=== PATIENT | female | born 1970 | race Caucasian/White ===

== ENCOUNTER 2021-07-07 10:39 | Emergency (ER) | payer OTHER ==
--- OUTSIDE RECORDS SUMMARY | 2021-07-07 10:42 | XMS REPORT | Continuity of Care Document ---
:1970 Author Organization [facility] t Address [facility] Daw[address] Nagy [address] [place] [address] Care Team Providers Name Role Phone ANNI CUMMINGSURSTON Primary Care Physician Unavailable Willie HIGGINS Attending Clinician WILLIE Attending Clinician Unavailable Doctor Unassigned, Name Attending Clinician Unavailable Osiris Ojeda Attending Clinician Osiris SHEPPARD Attending Clinician Unavailable Kathryn Bond Attending Clinician KATHRYN CLANCY Attending Clinician Unavailable KATHRYN CLANCY Admitting Clinician Unavailable Payers Payer Name Policy Type Policy Number Effective Date Expiration Date S ource Problems Condition Condition Condition Status Onset Resolution Last Treating Co mments Source Name Details Category Date Date Treatment Clinician Date Lichen Lichen Disease Active Univers sclerosus sclerosus 4- ity of 00:00: [address] Morbid Morbid Disease Active Univers obesity obesity 05-18 ity of 00:00: [address] Encounter Encounter Disease Active Overview: Univers for for 05-18 ICD10 ity of routine routine 00:00: Diagnosis [place] gynecologi gynecologi 00 Term Me dical reddy 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 Utility n n H/O: H/O: Disease Active Univers hysterecto hysterecto 05-18 it y of my my 00:00: Medical [place] Depression Depression Disease Active U nivers 05-18 ity of 00:00: [address] [place] [address] Generalize Generalize Disease Active U nivers d anxiety d anxiety 3-31 ity of disorder disorder 00:00: [place] [address] Medical Branch Essential Essential Disease Active Overview: [facility] hypertensi hypertensi 3-31 ICD10 it y of on on 00:00: Diagnosis [place] [address] Term 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 Branch Exposure to Yes [facility] SARS-CoV-2 (event) Medica l [place] Alcohol intake 2019-08-17 2019-08-17 [facility] 00:00:00 00:00:[address] [facility] Smoking Status Start Date Stop Date Source Never smoker [facility] Medications Ordered Filled Start Stop Current Ordering Indication Dosage Frequency Signature Comments Components Source Medication Medication Date Date Medication? Clinician (SIG) Name Name acetaminoph 2020- No 1000mg 1,000 mg, Univers en 08-20 Oral, ity of (TYLENOL) 00:28: 00:36 [place]CE, [place] tablet 00 :00 dose, [facility] Medical 1,000 mg 08/20/19 at Branch 1929, MAURICIO ketorolac 2019- No 15mg 15 mg, Unive rs (TORADOL) 08-20 Slow IV ity of injection 00:28: 00:36 Push, [place] 15 mg 00 :00 ONCE, 1 Medical dose, [facility] 08/20/19 at 0, MAURICIO
Fa culty member approving Restricted medication : [place] TAPIA codeine-gua 2020- No 10mL 10 mL, Uni vers ifenesin 08-19 Oral, ity of (ROBITUSSIN 23:15: 22:31 ONCE, 1 [place] AC[place] 00 :00 dose, [facility] Medi reddy mg/5 mL 08/20/19 at [place] solution 10 1815, MAURICIO mL methylpredn 2020- No 125mg 125 mg, IV Univers isolone sod 08-19 Piggyback, i ty of succ 22:02: 22:26 ONCE, 1 [place] (SOLU-MEDRO 00 :00 dose, [facility] Med ical L) 08/20/19 at Branch injection 1715, STAT 125 mg albuterol 2020- No 2{puff} 2 Puff, U nivers (VENTOLIN) 08-1902 Inhalation it y of inhaler 2 22:02: 22:58 , [place]CE, 1 [place] Puff 00 :00 dose, [facility] 08/20/19 at Branch 1715, MAURICIO
Is this order for a patient with suspected or confirmed COVID-19 infection? Yes ondansetron 2019-0 2020- No 4mg 4 mg, Slow Univers (ZOFRAN 08-19 IV Push, ity of (PF)) 22:01: 22:26 ONCE, 1 [place] injection 4 00 :00 dose, [facility] Med ical mg 08/20/19 at Branch 1715, MAURICIO NaCl 0.9% 0 2020- No 1000mL at 999 Uni vers (NS) IV 08-19 mL/hr, ity of infusion 22:01: 23:00 Intravenou [place] 1,000 mL 00 :00 s, ONCE, 1 Medic al dose, [facility] 08/20/19 at 1715, MAURICIO albuterol 2019-0 Yes [id number] 2{puff} Inhale 2 Univers 90 -02 Puffs ity of mcg/actuati 00:00: every 6 [place] as on inhaler 00 (six) Medical hours as Branch needed for Wheezing or Shortness of Breath. ondansetron 2019-0 Yes [id number] 4mg Take 1 Univers (ZOFRAN 08-19 tablet by ity of ODT) 4 mg 00:00: mouth [place] disintegrat 00 every 8 Medic al ing tablet (eight) Branch hours as needed for Nausea and Vomiting (N/V). codeine-gua 2020-0 Yes [id number] 10mL Take 10 mL Univers ifenesin 702 by mouth ity of 10-100 mg/5 00:00: every 6 [place] as mL solution 00 (six) Medical hours as Branch needed for Cough. cefTRIAXone 2019-0 2020- No 1000mg 1,000 mg, Univers (ROCEPHIN) 6-30 06-30 IV ity of 1,000 mg in 02:45: 02:22 Piggyback, [place] NaCl 0.9% 00 :00 ONCE, 1 Medical (NS) 50 mL dose, [facility] Bran ch MINI-BAG 08/17/19 at 2145, 50 mL
Reas on for Anti-Infec tive: Documented Infection< br>Documen barbie Infection Site: Urine
D uration of Therapy: 7 days ketorolac 2019- No 15mg 15 mg, Unive rs (TORADOL) 08-17 0630 Slow IV ity of injection 01:45: 01:11 Push, [place] 15 mg 00 :00 ONCE, 1 Medical dose, Mon Branch 08/17/19 at 2045, Routine
research assistant member approving Restricted medication : TOSIN SHEPPARDYony Newell NaCl 0.9% 2019- No 1000mL at 999 Uni vers (NS) bolus 08-17 06-30 mL/hr, ity of infusion 00:45: 02:31 1,000 mL, [place] as 1,000 mL 00 :00 IV Medical Infusion, Branch ONCE, 1 dose, [facility] 08/17/19 at 1945, MAURICIO cefpodoxime 2019-0 2020- No [id number] 100mg Take 1 Univers 100 mg 6-15 09-07 tablet by ity of tablet 00:00: 04:59 mouth 2 [place] 00 :00 (two) Medical times Branch daily for 7 days. cefpodoxime 2020-0 2020- No [id number] 100mg Take 1 Univers 100 mg 6- 07-07 tablet by ity of tablet 00:00: 04:59 mouth 2 [place] 00 :00 (two) Medical times Branch daily for 7 days. cefpodoxime 2020-0 2020- No [id number] 100mg Take 1 Univers 100 mg 6- 07-07 tablet by ity of tablet 00:00: 04:59 mouth 2 [place] 00 :00 (two) Medical times Branch daily for 7 days. valsartan-h 2019-0 Yes 1{tbl} Take 1 Un [place] ydrochlorot 2-08 tablet by ity of hiazide 02:06: mouth [place] 160-25 mg 29 daily. Medical per tablet Branch gabapentin 2019-0 Yes 300mg Take 300 [place] 300 mg 2-08 mg by ity of capsule 02:06: mouth 3 [place] 29 (three) Medical times Branch daily. traMADol 50 2020-0 Yes 50mg Take 50 mg Univers mg tablet 2-08 by mouth ity of 02:06: every 6 [place] 29 (six) Medical hours as Branch needed. valsartan-h 2020-0 Yes 1{tbl} Take 1 Un [place] ydrochlorot 2-08 tablet by ity of hiazide 02:06: mouth [place] 160-25 mg 29 daily. Medical per tablet Branch gabapentin 2020-0 Yes 300mg Take 300 Un [place] 300 mg 2-08 mg by ity of capsule 02:06: mouth 3 [place] 29 (three) Medical times Branch daily. traMADol 50 2020-0 Yes 50mg Take 50 mg Univers mg tablet 2-08 by mouth ity of 02:06: every 6 [place] 29 (six) Medical hours as Branch needed. valsartan-h 2020-0 Yes 1{tbl} Take 1 Un [place] ydrochlorot 2-08 tablet by ity of hiazide 02:06: mouth [place] 160-25 mg 29 daily. Medical per tablet Branch gabapentin 2020-0 Yes 300mg Take 300 Un [place] 300 mg 2-08 mg by ity of capsule 02:06: mouth 3 [place] 29 (three) Medical times Branch daily. traMADol 50 2020-0 Yes 50mg Take 50 mg Univers mg tablet 2-08 by mouth ity of 02:06: every 6 [place] 29 (six) Medical hours as Branch needed. valsartan-h 2020-0 Yes 1{tbl} Take 1 Un [place] ydrochlorot 2-08 tablet by ity of hiazide 02:06: mouth [place] 160-25 mg 29 daily. Medical per tablet Branch gabapentin 2020-0 Yes 300mg Take 300 Un [place] 300 mg 2-08 mg by ity of capsule 02:06: mouth 3 [place] 29 (three) Medical times Branch daily. traMADol 50 2020-0 Yes 50mg Take 50 mg Univers mg tablet 2-08 by mouth ity of 02:06: every 6 [place] 29 (six) Medical hours as Branch needed. valsartan-h 2020-0 Yes 1{tbl} Take 1 Un [place] ydrochlorot 2-08 tablet by ity of hiazide 02:06: mouth [place] 160-25 mg 29 daily. Medical per tablet Branch gabapentin 2020-0 Yes 300mg Take 300 Un [place] 300 mg 2-08 mg by ity of capsule 02:06: mouth 3 [place] 29 (three) Medical times Branch daily. traMADol 50 2019-0 Yes 50mg Take 50 mg Univers mg tablet 2-08 by mouth ity of 02:06: every 6 [place] 29 (six) Medical hours as Branch needed. diazePAM 2019- No 5mg 5 mg, Univers (VALIUM) 03-28-08 Oral, ity of tablet 5 mg 01:30: 00:44 ONCE, 1 [place] 00 :[place] dose, Fri Medical 03/27/19 at Branch 1930, MAURICIO ketorolac 2019- No 30mg 30 mg, Unive rs (TORADOL) 03-2808 Intramuscu ity of injection 01:30: 00:44 lar, ONCE, [place] 30 mg 00 :00 1 dose, Medical 03/27/19 Branch at 1930, MAURICIO
Fa culty member approving Restricted medication : TRACY MARTIN cyclobenzap 2020- No [id number] 5mg Take 1 Univers rine 5 mg 03-2715 tablet by ity of tablet 00:00: 05:59 mouth 3 [place] 00 :00 (three) Medical times [place] daily for 7 days. clobetasol 2013- Yes [id number] Apply to Univers (TEMOVATE) 4-24 area(s) 2 ity of 0.05 % 00:00: (two) [place] cream 00 times Medical daily. Branch clobetasol Yes [id number] Apply to Univers (TEMOVATE) 4-24 area(s) 2 ity of 0.05 % 00:00: (two) [place] cream 00 times Medical daily. Branch clobetasol Yes [id number] Apply to Univers (TEMOVATE) 4-24 area(s) 2 ity of 0.05 % 00:00: (two) [place] cream 00 times Medical daily. Branch clobetasol Yes [id number] Apply to Univers (TEMOVATE) 4-24 area(s) 2 ity of 0.05 % 00:00: (two) [place] cream 00 times Medical daily. Branch clobetasol 2013-0 Yes [id number] Apply to Univers (TEMOVATE) 4-24 area(s) 2 ity of 0.05 % 00:00: (two) [place] cream 00 times Medical daily. Branch enalapril 0 Yes Take by [place] [facility] ers (VASOTEC) 3-31 mouth ity of 10 mg 21:02: daily. [place] tablet [address] [place] [address] Branch SERTraline 0 Yes 50mg Take 50 mg U nivers (ZOLOFT) 50 3-31 by mouth ity of mg tablet 21:02: daily. [address] Branch naproxen 0 Yes 500mg Take 500 Univ ers (NAPROSYN) 3-31 mg by ity of 500 mg 21:02: mouth 2 [place] tablet 55 (two) Medical times Branch daily with meals. tiZANidine 2013-0 Yes 4mg Take 4 mg Un [place] (ZANAFLEX) 3-31 by mouth ity o f 4 mg tablet 21:02: every 6 [place] as 55 (six) Medical hours as Branch needed. enalapril 0 Yes Take by [place] [facility] ers (VASOTEC) 3-31 mouth ity of 10 mg 21:02: daily. [address] Branch SERTraline 0 Yes 50mg Take 50 mg U nivers (ZOLOFT) 50 3-31 by mouth ity of mg tablet 21:02: daily. [address] Branch naproxen 0 Yes 500mg Take 500 Univ ers (NAPROSYN) 3-31 mg by ity of 500 mg 21:02: mouth 2 [place] tablet 55 (two) Medical times Branch daily with meals. tiZANidine 0 Yes 4mg Take 4 mg Un [place] (ZANAFLEX) 3-31 by mouth ity o f 4 mg tablet 21:02: every 6 [place] 55 (six) Medical hours as Branch needed. enalapril 0 Yes Take by Univ ers (VASOTEC) 3-31 mouth ity of 10 mg 21:02: daily. [place] [address] Medical Branch SERTraline 0 Yes 50mg Take 50 mg U nivers (ZOLOFT) 50 3-31 by mouth ity of mg tablet 21:02: daily. [address] Branch naproxen 2013-0 Yes 500mg Take 500 Univ ers (NAPROSYN) 3-31 mg by ity of 500 mg 21:02: mouth 2 [place] tablet 55 (two) Medical times Branch daily with meals. tiZANidine 2013-0 Yes 4mg Take 4 mg Un [place] (ZANAFLEX) 3-31 by mouth ity o f 4 mg tablet 21:02: every 6 [place] 55 (six) Medical hours as Branch needed. enalapril 2013-0 Yes Take by Univ ers (VASOTEC) 3-31 mouth ity of 10 mg 21:02: daily. [place] tablet Medical Branch SERTraline 2013-0 Yes 50mg Take 50 mg U nivers (ZOLOFT) 50 3-31 by mouth ity of mg tablet 21:02: daily. [place] [address] Medical Branch naproxen 2013-0 Yes 500mg Take 500 Univ ers (NAPROSYN) 3-31 mg by ity of 500 mg 21:02: mouth 2 [place] tablet 55 (two) Medical times Branch daily with meals. tiZANidine 2013-0 Yes 4mg Take 4 mg Un [place] (ZANAFLEX) 3-31 by mouth ity o f 4 mg tablet 21:02: every 6 [place] 55 (six) Medical hours as Branch needed. enalapril 2013-0 Yes Take by Univ ers (VASOTEC) 3-31 mouth ity of 10 mg 21:02: daily. [place] [address] Medical Branch SERTraline 2013-0 Yes 50mg Take 50 mg U nivers (ZOLOFT) 50 3-31 by mouth ity of mg tablet 21:02: daily. [place] [address] Medical Branch naproxen 2013-0 Yes 500mg Take 500 Univ ers (NAPROSYN) 3-31 mg by ity of 500 mg 21:02: mouth 2 [place] tablet 55 (two) Medical times Branch daily with meals. tiZANidine 2013-0 Yes 4mg Take 4 mg Un [place] (ZANAFLEX) 3-31 by mouth ity o f 4 mg tablet 21:02: every 6 [place] 55 (six) Medical hours as Branch needed. Immunizations Ordered Filled Immunization Date Status Comments [facility] e Immunization Name Name TD 2013-05-18 Completed University of 00:00:00 [facility] Tdap 2013-05-18 Completed University of 00:00:00 [facility] TDAP 2013-05-18 Completed University of 00:00:00 [facility] TDAP 2013-05-18 Completed University of 00:00:00 [facility] TDAP 2013-05-18 Completed University 00:00:00 [facility] Vital Signs Vital Name Observation Time Observation Value Comments Source Systolic blood 2019-08-21 02:00:00 134 mm[Hg] Univer sity of pressure [place] [facility] Diastolic blood 2019-08-21 02:00:00 79 mm[Hg] Unive rsity of pressure [place] [facility] Heart rate 2019-08-21 02:00:00 90 /min Universi ty of [place] [facility] Respiratory rate 2019-08-21 02:00:00 17 /min Univ ersity of [place] [facility] Oxygen saturation in 2019-08-21 02:00:00 96 /min University of Arterial blood by [facility] reddy Pulse oximetry Branch Body temperature 2019-08-20 21:11:00 37.94 Trish Univ ersity of [place] [facility] Body weight 2019-08-20 21:11:00 108.863 kg Universi ty of [place] [facility] BMI 2019-08-20 21:11:00 39.94 kg/m2 Universi ty of [place] [facility] Systolic blood 2019-08-21 02:00:00 134 mm[Hg] Univer sity of pressure [place] [facility] Diastolic blood 2019-08-21 02:00:00 79 mm[Hg] Unive rsity of pressure [place] [facility] Heart rate 2019-08-21 02:00:00 90 /min Universi ty of [place] [facility] Respiratory rate 2019-08-21 02:00:00 17 /min Univ ersity of [place] [facility] Oxygen saturation in 2019-08-21 02:00:00 96 /min University of Arterial blood by [facility] reddy Pulse oximetry Branch Body temperature 2019-08-20 21:11:00 37.94 Trish Univ ersity of [place] [facility] Body weight 2019-08-20 21:11:00 108.863 kg Universi ty of [place] [facility] BMI 2019-08-20 21:11:00 39.94 kg/m2 Universi ty of [place] [facility] Systolic blood 2019-08-18 01:00:00 156 mm[Hg] Univer sity of pressure [place] [facility] Diastolic blood 2019-08-18 01:00:00 98 mm[Hg] Unive rsity of pressure [place] [facility] Heart rate 2019-08-18 01:00:00 88 /min Universi ty of [place] [facility] Respiratory rate 2019-08-18 01:00:00 18 /min Univ ersity of [place] [facility] Oxygen saturation in 2019-08-18 01:00:00 97 /min University of Arterial blood by [place] [facility] reddy Pulse oximetry Branch Body temperature 2019-08-18 00:25:00 37.78 Trish Univ ersity of [place] [facility] Body weight 2019-08-18 00:25:00 108.863 kg Universi ty of [place] [facility] BMI 2019-08-18 00:25:00 39.94 kg/m2 Universi ty of [place] [facility] Systolic blood 2019-08-18 01:00:00 156 mm[Hg] Univer sity of pressure [place] [facility] Diastolic blood 2019-08-18 01:00:00 98 mm[Hg] Unive rsity of pressure [place] [facility] Heart rate 2019-08-18 01:00:00 88 /min Universi ty of [place] [facility] Respiratory rate 2019-08-18 01:00:00 18 /min Univ ersity of [place] [facility] Oxygen saturation in 2019-08-18 01:00:00 97 /min University of Arterial blood by [place] [facility] reddy Pulse oximetry Branch Body temperature 2019-08-18 00:25:00 37.78 Trish Univ ersity of [place] [facility] Body weight 2019-08-18 00:25:00 108.863 kg Universi ty of [place] [facility] BMI 2019-08-18 00:25:00 39.94 kg/m2 Universi ty of [place] [facility] Systolic blood 2019-03-28 00:56:20 147 mm[Hg] Univer sity of pressure [place] [facility] Diastolic blood 2019-03-28 00:56:20 87 mm[Hg] Unive rsity of pressure [place] [facility] Heart rate 2019-03-28 00:56:20 73 /min Universi ty of [place] [facility] Respiratory rate 2019-03-28 00:56:20 16 /min Univ ersity of [place] [facility] Oxygen saturation in 2019-03-28 00:56:20 99 /min University of Arterial blood by [place] Quant[facility] reddy Pulse oximetry Branch Body temperature 2019-03-27 23:49:00 36.83 Trish Univ ersity of [place] [facility] Body height 2019-03-27 23:49:00 165.1 cm Universi ty of [place] [facility] Body weight 2019-03-27 23:49:00 104.327 kg Universi ty of [place] [facility] BMI 2019-03-27 23:49:00 38.27 kg/m2 [facility] Systolic blood 2019-03-28 00:56:20 147 mm[Hg] Univer sity of pressure [facility] Diastolic blood 2019-03-28 00:56:20 87 mm[Hg] Unive [facility] Heart rate 2019-03-28 00:56:20 73 /min [facility] Respiratory rate 2019-03-28 00:56:20 16 /min [facility] Oxygen saturation in 2019-03-28 00:56:20 99 /min [facility] Arterial blood by [facility] Pulse oximetry [place] Body temperature 2019-03-27 23:49:00 36.83 Trish [facility] Body height 2019-03-27 23:49:00 165.1 cm [facility] Body weight 2019-03-27 23:49:00 104.327 kg [facility] BMI 2019-03-27 23:49:00 38.27 kg/m2 [facility] Procedures Procedure Date / Time Performing Clinician Source Performed URINALYSIS 2019-08-21 00:35:00 Willie [facility] COVID-19 (ID NOW RAPID 2019-08-20 22:19:00 [facility] [place] [facility]) [facility] Branch LIPASE 2019-08-20 21:49:00 Willie [facility] COMP. METABOLIC PANEL 2019-08-20 21:49:00 Sanford Tapia [facility] ([id number]) [facility] CBC WITH DIFFERENTIAL 2019-08-20 21:49:00 [facility] XR CHEST 1 VW 2019-08-20 21:37:11 Willie [facility] NOTICE OF PRIVACY 2019-08-20 21:02:00 Doctor Unassigned, No [facility] PRACTICES Name Medical Branch CONSENT/REFUSAL FOR 2019-08-20 21:01:47 [facility]igned, [facility] Medical [place] COMP. METABOLIC PANEL 2019-08-18 00:50:00 Jennie Sheppard [facility] ([id number]) Medical Branch URINALYSIS 2019-08-18 00:50:00 Jennie Sheppard [place] [facility] CBC WITH DIFFERENTIAL 2019-08-18 00:50:00 Jennie Sheppard Univer sity [facility] POCT TEST 2019-08-18 00:49:00 Jennie Sheppard Universi ty of [facility] NOTICE OF PRIVACY 2019-08-18 00:19:16 Doctor Unassigned, No [facility] Name [facility] Branch CONSENT/REFUSAL FOR 2019-08-18 00:18:39 Doctor Unassigned, No Un iversity of [place] DIAGNOSIS AND TREATMENT Name [facility] XR SACRUM AND COCCYX 2019-03-28 01:04:34 Rosalind Clancy [facility] NOTICE OF PRIVACY 2019-03-27 23:45:42 [facility]igned, No [facility] CONSENT/REFUSAL FOR 2019-03-27 23:44:21 Doctor Unassigned, No Un iversity of [place] DIAGNOSIS AND TREATMENT Name [facility] Encounters Start End Encounter Admission Attending Care Care Encounter Source Date/Time Date/Time Type Type Clinicians Facility Department ID 2019-08-20 2019-08-20 Emergency [facility] [id number] 16:13:14 21:10:00 Sanford Cox [id number] [place] [id number] [place] [id number] 2019-08-20 2019-08-20 Emergency [facility] [id number] Univers 16:13:14 21:10:00 Sanford Cox [id number] i ty [facility] [id number] [facility] [id number] [place] [address] Branch 2019-08-20 2019-08-20 Emergency X [facility] ERT [id number] Univers 16:13:14 16:13:14 SANFORD see of [facility] 2019-08-20 2019-08-20 Orders Doctor TUCKER [id number] 00:00:00 00:00:00 Only Unassigned, GONZALEZ [id number] [facility] [id number] [id number] 2019-08-20 2019-08-20 Orders Doctor GARRETT [id number] Univers 00:00:00 00:00:00 Only Unassigned, GONZALEZ [id number] ity of [facility] [id number] [place] as [id number] [address] 2019-08-17 2019-08-17 Emergency [facility] [id number] 19:21:47 21:45:00 Jennie R [place] [id number] [place] 4.2.7.2.686 [place] [id number] [facility] 2019-08-17 2019-08-17 Emergency [facility] [id number] Univers 19:21:47 21:45:00 Jennie R [place] [id number] i ty of [place] [id number] [facility] [id number] [address] 2019-08-17 2019-08-17 Emergency X [facility] ERT [id number] Univers 19:21:47 19:21:47 JENNIE ity of [facility] 2019-08-17 2019-08-17 Orders Doctor TUCKER [id number] Univers 00:00:00 00:00:00 Only Unassigned, GONZALEZ [id number] ity of [facility] [id number] [place] as [id number] [address] 2019-08-17 2019-08-17 Orders Doctor TUCKER [id number] 00:00:00 00:00:00 Only Unassigned, GONZALEZ [id number] [facility] 4.2.7.2.686 [id number] 2019-03-27 2019-03-27 Emergency [facility] [id number] Univers 17:52:46 20:08:00 Rosalind Wolf [place] [id number] ity of [place] [id number] [facility] [id number] [place] [address] [place] 2019-03-27 2019-03-27 Emergency X [facility] ERT [id number] Univers 17:52:46 20:08:00 ROSALIND see [facility] 2019-03-27 2019-03-27 Emergency [place] [facility] [id number] 17:52:46 20:08:00 Rosalind Petitton [id number] [place] 4.2.7.2.686 [place] [id number] Results Test Description Test Time Test Comments Results Result Comments Source URINALYSIS 2019-08-21 01:12:00 Test Item Value Reference Range Interpretation Comme nts APPEARANCE (test code = Clear Clear [id number]) COLOR (test code = 5176742197) Yellow Yellow PH (test code = 8060274990) 4.8-8.0 SP GRAVITY (test code = 1.003-1.030 1380716734) GLU U QUAL (test code = Normal Normal 6342927601) BLOOD (test code = 3537234993) 1+ Negative A KETONES (test code = 7052737369) 20 mg/dL Negative A PROTEIN (test code = 2887-8) Negative Negative UROBILIN (test code = Normal Normal 1957227273) BILIRUBIN (test code = Negative Negative 6312255979) NITRITE (test code = 3565963990) Negative Negative LEUK THANIA (test code = Negative Negative 8559839488) RBC/HPF (test code = 3829448875) See_Comment H [Automated message] The system which ge nerated this result transmit barbie reference range: 0 - 3 HP F. The reference range was not used to interpret th is result as normal/abnormal . WBC/HPF (test code = 0606489694) See_Comment [Automated message] The system which ge nerated this result transmit barbie reference range: 0 - 5 HP F. The reference range was not used to interpret th is result as normal/abnormal . BACTERIA (test code = Few Negative A 7784861724) MUCOUS (test code = 2201504580) Slight Negative LPF A SQ EPITH (test code = HPF 5674513344) Lab Interpretation (test code = Abnormal 06560-1) [facility]ID NOW RAPID TESTING)2019-08-20 22:34:00 Test Item Value Reference Range Interpretation Comments SARS-CoV-2 Rapid ID NOW Positive Not Detected A (test code = 94260-1) JAVED (test code = JAVED) ID NOW COVID-19 Assay is an isothermal nucleic acid amplification test intended for the qualitative detection of nucleic acid from SARS-CoV-2 viral RNA in nasopharyngeal ([employer]) specimens. It is used under Emergency Use Authorization (EUA) by FDA. The limit of detection (LOD) of the assay is 125 Genome Equivalents/mL. A positive result is indicative of the presence of SARS-CoV-2 RNA. ?Clinical correlation with patient history and other diagnostic information is necessary to determine patient infection status. A negative (Not Detected) result does not preclude SARS-CoV-2 infection. In patients with clinical symptoms and other tests that are consistent with SARS-CoV-2 infection, negative results should be treated as presumptive negative and a new specimen should be tested with alternative PCR molecular test. Invalid: Please collect a new specimen for repeat patient testing if clinically indicated. Lab Interpretation Abnormal (test code = 57118-5) [facility]. METABOLIC PANEL ([id number])2019-08-20 22:11:00 Test Item Value Reference Range Interpretation Comments NA (test code = 137 mmol/L 135-145 4171348325) K (test code = 3.3 mmol/L 3.5-5 L 9212445562) CL (test code = 99 mmol/L 98-108 5191910915) CO2 TOTAL (test code = 30 mmol/L 23-31 9975971679) AGAP (test code = 2-16 9735025127) BUN (test code = 8 mg/dL 7-23 4540926949) GLUCOSE (test code = 112 mg/dL 70-110 H 2273093735) CREATININE (test code = 0.76 mg/dL 0.5-1.04 4963341307) TOTAL BILI (test code = 0.6 mg/dL 0.1-1.8 9654373061) CALCIUM (test code = 8.7 mg/dL 8.6-10.6 3050553878) T PROTEIN (test code = 7.7 g/dL 6.3-8.2 1669283341) ALBUMIN (test code = 4.3 g/dL 3.5-5 3586005639) ALK PHOS (test code = 49 U/L 34-122 2190177056) ALTv (test code = 21 U/L 5-35 1742-6) AST(SGOT) (test code = 38 U/L 13-40 7339594455) eGFR Calculation mL/min/1.73m2 (Non-) (test code = 8909800568) eGFR Calculation mL/min/1.73m2 () (test code = 8934330574) JAVED (test code = JAVED) Association of Glomerular Filtration Rate (GFR) and Staging of Kidney Disease* + --+ --+ ------+| GFR (mL/min/1.73 m2) ?| With Kidney Damage ?| ?Without Kidney Damage+ --------+ --------+ +| ?>90 ?| ?Stage one ?| ? Normal ?+ ---+ ---+ -------+| ?60-89 ?| ?Stage two ?| ? Decreased GFR ? + --+ --+ ------+| ?30-59 ?| ?Stage three ?| ? Stage three ? + --+ --+ ------+| ?15-29 ?| ?Stage four ? | ? Stage four ?+ ---+ ---+ -------+| ?<15 (or dialysis) ? ?| ?Stage five ? | ? Stage five ?+ ---+ ---+ -------+ *Each stage assumes the associated GFR level has been in effect for at least three months. ?Stages 1 to 5, with or without kidney disease, indicate chronic kidney disease. Notes: Determination of stages one and two (with eGFR >59mL/min/1.73 m2) requires estimation of kidney damage for at least three months as defined by structural or functional abnormalities of the kidney, manifested by either:Pathological abnormalities or Markers of kidney damage (including abnormalities in the composition of the blood or urine or abnormalities in imaging tests). Lab Interpretation Abnormal (test code = 60798-8) [facility]2020-07[facility] 22:10:00 Test Item Value Reference Range Interpretation Comments LIPASE (test code = 7810644749) 185 U/L 0-220 Lab Interpretation (test code = Normal 12515-5) [facility] WITH [id number] 21:59:00 Test Item Value Reference Range Interpretation Comments WBC (test code = See_Comment L [Automated 6690-2) message] The sy stem which generated this result transmitted reference range : 4.30 - 11.10 10*3/?L. The reference range was not used to interpret this result as normal/abnormal . RBC (test code = See_Comment [Automated 789-8) message] The sy stem which generated this result transmitted reference range : 3.93 - 5.25 10*6/?L. The reference range was not used to interpret this result as normal/abnormal . HGB (test code = 13.1 g/dL 11.6-15 718-7) HCT (test code = 39.3 % 35.7-45.2 4544-3) MCV (test code = 88.1 fL 80.6-95.5 787-2) MCH (test code = 29.4 pg 25.9-32.8 785-6) MCHC (test code = 33.3 g/dL 31.6-35.1 786-4) RDW-SD (test code = 42.5 fL 39-49.9 21197-0) RDW-CV (test code = 13.1 % 12-15.5 788-0) PLT (test code = See_Comment [Automated 777-3) message] The sy stem which generated this result transmitted reference range : 166 - 358 10*3/ ?L. The reference r ginger was not used to interpret this result as normal/abnormal . MPV (test code = 10.0 fL 9.5-12.9 06397-4) NRBC/100 WBC (test See_Comment [Automat ed code = 3537185476) message] The system which generated this result transmitted reference range : 0.0 - 10.0 /100 WBCs. The refer ence range was not u sed to interpret th is result as normal/abnormal . NRBC x10^3 (test code <0.01 See_Comment [Auto mated = 7498701317) message] The s ystem which generated this result transmitted reference range : 10*3/?L. The reference range was not used to interpret this result as normal/abnormal . GRAN MAT (NEUT) % 67.8 % (test code = 770-8) IMM GRAN % (test code 0.50 % = 0033001091) LYMPH % (test code = 26.0 % 736-9) MONO % (test code = 5.7 % 5905-5) EOS % (test code = 0.0 % 713-8) BASO % (test code = 0.0 % 706-2) GRAN MAT x10^3(ANC) 2.74 10*3/uL 1.88-7.09 (test code = 2860105932) IMM GRAN x10^3 (test <0.03 0-0.06 code = 0768051555) LYMPH x10^3 (test code 1.05 10*3/uL 1.32-3.29 L = 731-0) MONO x10^3 (test code 0.23 10*3/uL 0.33-0.92 L = 742-7) EOS x10^3 (test code = <0.03 0.03-0.39 L 711-2) BASO x10^3 (test code <0.03 0.01-0.07 = 704-7) Lab Interpretation Abnormal (test code = 41346-3) [facility]XR CHEST 1 [id number] 21:41:04HISTORY: Cough and fever. TECHNIQUE: Portable AP erect view of the chest is obtained. No prior cheststudy available for comparison. FINDINGS: No acute pneumonia. Minimal congestion suspected in both lungs,without any focal groundglass hazy consolidation. No pneumothorax orpleural effusion detected. Cardiac size is within normal limits. Oldfractures of multiple left ribs noted. CONCLUSIONS: Minimal congestion in the lungs without focal consolidation.Findings could be secondary to nonspecific viral infection.[facility], Radiant Results Inft User - 08/20/2019 4:42 PM CDTHISTORY: Cough and fever.TECHNIQUE: Portable AP erect view of the chest is obtained. No prior cheststudy available for comparison.FINDINGS: No acute pneumonia. Minimal congestion suspected in both lungs,without any focal groundglass hazy consolidation. No pneumothorax orpleural effusion detected. Cardiac size is within normal limits. Oldfractures of multiple left ribs noted.CONCLUSIONS: Minimal congestion in the lungs without focal consolidation.Findings could be secondary to nonspecific viral infection. [facility] METABOLIC PANEL ([id number])2019-08-18 01:54:00 Test Item Value Reference Range Interpretation Comments NA (test code = 137 mmol/L 135-145 7240129445) K (test code = 3.5 mmol/L 3.5-5 0663373975) CL (test code = 102 mmol/L 98-108 5361614110) CO2 TOTAL (test code = 26 mmol/L 23-31 4677272383) AGAP (test code = 2-16 8952517076) BUN (test code = 13 mg/dL 7-23 3874711184) GLUCOSE (test code = 112 mg/dL 70-110 H 5339857710) CREATININE (test code = 0.78 mg/dL 0.5-1.04 5968016428) TOTAL BILI (test code = 0.7 mg/dL 0.1-1.4 2496331602) CALCIUM (test code = 9.0 mg/dL 8.6-10.6 5044455163) T PROTEIN (test code = 7.8 g/dL 6.3-8.2 7605884049) ALBUMIN (test code = 4.5 g/dL 3.5-5 2474817941) ALK PHOS (test code = 58 U/L 34-122 4086347900) ALTv (test code = 27 U/L 5-35 1742-6) AST(SGOT) (test code = 48 U/L 13-40 H 5715684908) eGFR Calculation mL/min/1.73m2 (Non-) (test code = 2978020484) eGFR Calculation mL/min/1.73m2 () (test code = 5411327035) JAVED (test code = JAVED) Association of Glomerular Filtration Rate (GFR) and Staging of Kidney Disease* + --+ --+ ------+| GFR (mL/min/1.73 m2) ?| With Kidney Damage ?| ?Without Kidney Damage+ --------+ --------+ +| ?>90 ?| ?Stage one ?| ? Normal ?+ ---+ ---+ -------+| ?60-89 ?| ?Stage two ?| ? Decreased GFR ? + --+ --+ ------+| ?30-59 ?| ?Stage three ?| ? Stage three ? + --+ --+ ------+| ?15-29 ?| ?Stage four ? | ? Stage four ?+ ---+ ---+ -------+| ?<15 (or dialysis) ? ?| ?Stage five ? | ? Stage five ?+ ---+ ---+ -------+ *Each stage assumes the associated GFR level has been in effect for at least three months. ?Stages 1 to 5, with or without kidney disease, indicate chronic kidney disease. Notes: Determination of stages one and two (with eGFR >59mL/min/1.73 m2) requires estimation of kidney damage for at least three months as defined by structural or functional abnormalities of the kidney, manifested by either:Pathological abnormalities or Markers of kidney damage (including abnormalities in the composition of the blood or urine or abnormalities in imaging tests). Lab Interpretation Abnormal (test code = 41216-0) [facility]URIN[facility]IS2020-06-30 01:33:00 Test Item Value Reference Range Interpretation Comments APPEARANCE (test code = Hazy Clear A 1830578907) COLOR (test code = Toma Yellow A 2003023175) PH (test code = 4.8-8.0 5786409758) SP GRAVITY (test code = 1.003-1.030 H 0374117356) GLU U QUAL (test code = Normal Normal 8372831894) BLOOD (test code = 1+ Negative A 5356591123) KETONES (test code = 5 mg/dL Negative A 2532186695) PROTEIN (test code = 30 mg/dL Negative A 2887-8) UROBILIN (test code = Normal Normal 8829575197) BILIRUBIN (test code = 2 mg/dL Negative A 1722054040) NITRITE (test code = Positive Negative A 2617614784) LEUK THANIA (test code = 75/uL Negative A 6094456227) RBC/HPF (test code = See_Comment H [Autom ated message] 5495155204) The system [employer] generated this result transmitted ref erence range: 0 - 3 HP F. The reference range was not used to int erpret this result as normal/abnormal . WBC/HPF (test code = See_Comment H [Autom ated message] 4002360584) The system [employer] generated this result transmitted ref erence range: 0 - 5 HP F. The reference range was not used to int erpret this result as normal/abnormal . BACTERIA (test code = Many Negative A 4970643818) MUCOUS (test code = Slight Negative LPF A 2695207175) SQ EPITH (test code = HPF 7547700641) Lab Interpretation (test Abnormal code = 59361-6) [facility] WITH [id number] 01:10:00 Test Item Value Reference Range Interpretation Comments WBC (test code = See_Comment [Automated 6690-2) message] The sy stem which generated this result transmitted reference range : 4.30 - 11.10 10*3/?L. The reference range was not used to interpret this result as normal/abnormal . RBC (test code = See_Comment [Automated 789-8) message] The sy stem which generated this result transmitted reference range : 3.93 - 5.25 10*6/?L. The reference range was not used to interpret this result as normal/abnormal . HGB (test code = 13.6 g/dL 11.6-15 718-7) HCT (test code = 40.9 % 35.7-45.2 4544-3) MCV (test code = 88.1 fL 80.6-95.5 787-2) MCH (test code = 29.3 pg 25.9-32.8 785-6) MCHC (test code = 33.3 g/dL 31.6-35.1 786-4) RDW-SD (test code = 42.2 fL 39-49.9 54173-4) RDW-CV (test code = 13.1 % 12-15.5 788-0) PLT (test code = See_Comment L [Automated 777-3) message] The sy stem which generated this result transmitted reference range : 166 - 358 10*3/ ?L. The reference r ginger was not used to interpret this result as normal/abnormal . MPV (test code = 10.7 fL 9.5-12.9 37162-9) NRBC/100 WBC (test See_Comment [Automat ed code = 0661630069) message] The system which generated this result transmitted reference range : 0.0 - 10.0 /100 WBCs. The refer ence range was not u sed to interpret th is result as normal/abnormal . NRBC x10^3 (test code <0.01 See_Comment [Auto mated = 0477935778) message] The s ystem which generated this result transmitted reference range : 10*3/?L. The reference range was not used to interpret this result as normal/abnormal . GRAN MAT (NEUT) % 56.5 % (test code = 770-8) IMM GRAN % (test code 0.40 % = 7047400734) LYMPH % (test code = 36.1 % 736-9) MONO % (test code = 6.6 % 5905-5) EOS % (test code = 0.2 % 713-8) BASO % (test code = 0.2 % 706-2) GRAN MAT x10^3(ANC) 2.72 10*3/uL 1.88-7.09 (test code = 2320897265) IMM GRAN x10^3 (test <0.03 0-0.06 code = 0494583792) LYMPH x10^3 (test code 1.74 10*3/uL 1.32-3.29 = 731-0) MONO x10^3 (test code 0.32 10*3/uL 0.33-0.92 L = 742-7) EOS x10^3 (test code = <0.03 0.03-0.39 L 711-2) BASO x10^3 (test code <0.03 0.01-0.07 = 704-7) Lab Interpretation Abnormal (test code = 68453-4) [facility]PO[facility] [id number] 00:49:00 Test Item Value Reference Range Interpretation Comments POCT PREG (test code = 1605) negative POCT PREG LOT # (test code = 3575) [id number] POCT PREG TEST DATE (test 09/17/2020 code = 3576) Lab Interpretation (test code = Normal 75796-7) [facility]XR SACRUM AND [id number] 01:12:39 Impression: No appreciable fracture lines. Clinical follow-up is advised. If clinicalsymptoms persist, follow up imaging is suggested. RL: [id number] End of Report Exam: Sacrum Coccyx, 03/27/2019 6:30 PM. Ordering Physician: ROSALIND CLANCY. History: Sacral injury, pain. Technique: 3 views of the sacrum and coccyx. Comparison: None. Findings: Vertebral body immediately cephalad to the most caudal will be consideredL5. ?There is grade 1 anterolisthesis of L4 on L5. Sacroiliac joints arepatent. Visualized sacral arcuate lines are intact. There are noappreciable fracture lines. No displaced coccygeal segments are visualized.Visualized pubic rami are intact. [facility], Radiant Results Inft User - 03/27/2019 7:38 PM CSTExam: Sacrum Coccyx, 03/27/2019 6:30 PM.Ordering Physician: ROSALIND CLANCY.History: Sacral injury, pain.Technique: 3 views of the sacrum and coccyx.Comparison: None.Findings: Vertebral body immediately cephalad to the most caudal will be consideredL5. There is grade 1 anterolisthesis of L4 on L5. Sacroiliac joints arepatent. Visualized sacral arcuate lines are intact. There are noappreciable fracture lines. No displaced coccygealsegments are visualized.Visualized pubic rami are intact. IMPRESSIONImpression: No appreciable fracture lines. Clinical follow-up is advised. If clinicalsymptoms persist, follow up imaging is suggested.RL: 2824End of Report [facility]"
--- NOTE | 2021-07-07 13:13 | RAD REPORT ---
EXAM DESCRIPTION: RAD - Foot Left 3 View - 07/07/2021 12:34 pm CLINICAL HISTORY: PAIN COMPARISON: Foot Left 3 View dated 04/11/2021 FINDINGS: No fracture, dislocation or periosteal reaction. No acute bone or joint process identifiab le. Multiple screws are in place from talocalcaneal fusion. Tibiotalar degenerative change present. T here is joint space narrowing, marginal spurring and several heterotopic bony densities present. Bone screws also fuse the cuboid bone and possibly the inferior margin of the navicular bone. No air or foreign body in the soft tissues. IMPRESSION: Ankle and midfoot postsurgical and degenerative changes are present not clearly differen t from April 11 imaging. No acute or bone finding identifiable when compared to March imaging.
--- NOTE | 2021-07-07 13:28 | EDPHYS ---
Physician Documentation [facility] Name: Fatimah Morales Age: 50 yrs Sex: Female : 1970 Arrival Date: 07/07/2021 Time: 10:41 Bed 10 Private MD: Sharad Farr T ED Physician Sukumar Tapia HPI: 07/07 11:27 This 50 yrs old Female presents to ER via Ambulatory with complaints of Foot Pain. pm1 11:27 The patient presents with pain. pm1 11:27 The complaints affect the medial aspect of left foot. Context: resulted from possible pm1 from standing at work, the patient can fully bear weight, the patient is able to ambulate, Problem is a result from a previous injury: multiple prior surgeries to left foot. Onset: The symptoms/episode began/occurred yesterday. Modifying factors: The symptoms are alleviated by elevating leg, the symptoms are aggravated by weight bearing. Associated signs and symptoms: Pertinent positives: swelling, Pertinent negatives fever. Treatment prior to arrival includes: over the counter medications. Severity of symptoms: in the emergency department the symptoms are unchanged. The patient has not recently seen a physician. 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 - Social history:: Smoking status: Patient denies any tobacco usage or history of. ROS: 11:27 Constitutional: Negative for fever, chills, and weight loss, Cardiovascular: Negative pm1 for chest pain, palpitations, and edema, Respiratory: Negative for shortness of breath, cough, wheezing, and pleuritic chest pain. 11:27 Skin: Negative for injury, rash, and discoloration, Neuro: Negative for headache, weakness, numbness, tingling, and seizure. 11:27 MS/extremity: Positive for pain, of the medial aspect of left foot, Negative for decreased range of motion, deformity. 11:27 All other systems are negative. Exam: 11:27 Constitutional: This is a well developed, well nourished patient who is awake, alert, pm1 and in no acute distress. Head/Face: Normocephalic, atraumatic. 11:27 Skin: Warm, dry with normal turgor. Normal color with no rashes, no lesions, and no evidence of cellulitis. 11:27 Cardiovascular: Exam negative for acute changes, Rate: normal, Rhythm: regular, Pulses: no pulse deficits are appreciated, Heart sounds: normal. 11:27 Respiratory: Exam negative for acute changes, respiratory distress, shortness of breath. 11:27 Musculoskeletal/extremity: Extremities: grossly normal except: noted in the medial aspect of left foot: swelling, tenderness, There is no evidence of deformity. 11:27 Neuro: Exam negative for acute changes, Orientation: is normal, Mentation: is normal, Motor: is normal, moves all fours. Vital Signs: 11:00 BP 132 / 80; Pulse 81; Temp 97.7; Pulse Ox 100% ; Weight 106.14 kg; Height 5 ft. 5 in. ap3 (165.10 cm); Pain 9/10; 11:00 Body Mass Index 38.94 (106.14 kg, 165.10 cm) ap3 MDM: 11:20 Patient medically screened. pm1 13:25 Data reviewed: vital signs. Data interpreted: Pulse oximetry: on room air is 100 %. pm1 Interpretation: normal. 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 07/07 11:27 Order name: Foot Left 3 View XRAY; Complete Time: 13:25 pm1 Administered Medications: 14:00 Drug: Decadron (dexamethasone) 10 mg Route: IM; Site: left gluteus; ss 14:14 Follow up: Response: No adverse reaction; Medication administered at discharge. ss Disposition Summary: 07/07/21 13:27 Discharge Ordered Location: Home pm1 Problem: new pm1 Symptoms: have improved pm1 Condition: Stable pm1 Diagnosis - Pain in left foot pm1 Followup: pm1 - With: Emergency Department - When: As needed - Reason: Worsening of condition Followup: pm1 - With: Private Physician - When: 2 - 3 days - Reason: Recheck today's complaints, Continuance of care, Re-evaluation by your physician Discharge Instructions: - Discharge Summary Sheet pm1 - Arthritis pm1 - Foot Pain pm1 Forms: - Medication Reconciliation Form pm1 - Thank You Letter pm1 - Antibiotic Education pm1 - Prescription Opioid Use pm1 Prescriptions: - Medrol (Tobi) 4 mg Oral Tablets, Dose Pack - take 1 tablet by ORAL route as directed - follow package instructions; 1 pm1 packet; Refills: 0, Product Selection Permitted Signatures: Dispatcher [employer] Vianey Floyd RN RN ss Arthur Burt, [employer] pm1 Kaitlynn Pichardo RN RN ap3
--- NOTE | 2021-07-07 13:28 | ER ---
Nurse's Notes [facility] Name: Fatimah Morales Age: 50 yrs Sex: Female : 1970 Arrival Date: 07/07/2021 Time: 10:41 Bed 10 Private MD: Sharad Farr T Diagnosis: Pain in left foot Presentation: 07/07 11:00 Chief complaint: Patient states: she started having left foot pain yesterday when ap3 working. patient denies any recent trauma to the painful foot, however reports she has had multiple surgeries on the ankle associated with the left foot pain. Coronavirus screen: At this time, the client does not indicate any symptoms associated with coronavirus-19. Ebola Screen: No symptoms or risks identified at this time. Initial Sepsis Screen: Does the patient meet any 2 criteria? No. Patient's initial sepsis screen is negative. Does the patient have a suspected source of infection? No. Patient's initial sepsis screen is negative. Risk Assessment: Do you want to hurt yourself or someone else? Patient reports no desire to harm self or others. Onset of symptoms was July 06, 2021. 11:00 Method Of Arrival: Ambulatory ap3 11:00 Acuity: BRIANNA 4 ap3 Triage Assessment: 11:05 General: Appears in no apparent distress. Behavior is calm, cooperative. Pain: ap3 Complains of pain in left ankle, foot Pain radiates to left leg Pain currently is 9 out of 10 on a pain scale. Neuro: Level of Consciousness is awake, alert, obeys commands, Oriented to person, place, time, situation, Gait is unsteady. Cardiovascular: Patient's skin is warm and dry. Respiratory: Airway is patent Respiratory effort is even, unlabored. 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 - Social history:: Smoking status: Patient denies any tobacco usage or history of. Screenin:06 Abuse screen: Denies threats or abuse. Nutritional screening: No deficits noted. ap3 Tuberculosis screening: No symptoms or risk factors identified. Assessment: 11:35 Reassessment: Patient appears in no apparent distress at this time. ss Vital Signs: 11:00 BP 132 / 80; Pulse 81; Temp 97.7; Pulse Ox 100% ; Weight 106.14 kg; Height 5 ft. 5 in. ap3 (165.10 cm); Pain 9/10; 11:00 Body Mass Index 38.94 (106.14 kg, 165.10 cm) ap3 ED Course: 10:41 Patient arrived in ED. mr 10:41 Sharad Farr MD is Private Physician. mr 11:02 Triage completed. ap3 11:06 Arm band placed on right wrist. ap3 11:19 Arthur Burt NP is PHCP. pm1 11:19 Sukumar Tapia MD is Attending Physician. pm1 11:35 Vianey Solares RN is Primary Nurse. ss 11:35 Patient has correct armband on for positive identification. Bed in low position. ss 12:38 Foot Left 3 View XRAY In Process Unspecified. EDMS 14:14 No provider procedures requiring assistance completed. Patient did not have IV access ss during this emergency room visit. Administered Medications: 14:00 Drug: Decadron (dexamethasone) 10 mg Route: IM; Site: left gluteus; ss 14:14 Follow up: Response: No adverse reaction; Medication administered at discharge. ss Medication: 11:06 VIS not applicable for this client. ap3 Outcome: 13:27 Discharge ordered by . pm1 14:14 Discharged to home ambulatory. ss 14:14 Condition: good 14:14 Discharge instructions given to patient, Instructed on discharge instructions, follow up and referral plans. medication usage, Demonstrated understanding of instructions, follow-up care, medications, Prescriptions given X 1. 14:16 Patient left the ED. Signatures: Dispatcher [facility] SosaAlisha mr Vianey Solares RN RN Arthur Burt NP HEADWAITRESS pm1 Prokisch, Kaitlynn, RN RN ap3
[2021-07-07] MEDS ORDERED: dexAMETHasone 10 MG/ML VIAL ONE (14:09)
[2021-07-07 14:32] VITALS: BP 132/80; TEMP 97.7; O2SAT 100
== END 2021-07-07 14:16 | disposition home or self-care (01) ==
LOC: ER 10:39
DX: M79.672 Pain in left foot (principal); I10 Essential (primary) hypertension
CPT/HCPCS: 73630; 96372; 99283; J1100

== ENCOUNTER 2022-10-20 19:45 | Emergency (ER) | payer OTHER ==
--- OUTSIDE RECORDS SUMMARY | 2022-10-20 19:49 | XMS REPORT | Continuity of Care Document ---
:1970 Author Organization [facility] t Address [address] [place] [address] Care Team Providers Name Role Phone MER CUMMINGS Primary Care Physician Unavailable Sanford Barriga Attending Clinician SANFORD TAPIA Attending Clinician Unavailable Doctor Unassigned, Sage Attending Clinician Unavailable Jennie Ojeda Attending Clinician JENNIE SHEPPARD Attending Clinician Unavailable ROSALIND CLANCY Attending Clinician Unavailable Rosalind Bond Attending Clinician ROSALIND CLANCY Admitting Clinician Unavailable Payers Payer Name Policy Type Policy Number Effective Date Expiration Date S ource Problems Condition Condition Condition Status Onset Resolution Last Treating Co mments Source Name Details Category Date Date Treatment Clinician Date Lichen Lichen Disease Active Univers sclerosus sclerosus 06-15 ity of 00:00: [place] [address] Medical Branch Morbid Morbid Disease Active Univers obesity obesity 05-18 ity of 00:: [place] [address] Medical [place] Encounter Encounter Disease Active Overview: Univers for for 05-18 ICD10 ity of routine routine 00:00: Diagnosis [place] gynecologi gynecologi 00 Term Me dical reddy reddy Seasoning [place] Branch examinatio examinatio Utility n n H/O: H/O: Disease Active Univers hysterecto hysterecto 05-18 it y of my my 00:00: [place] [address] Medical Branch Depression Depression Disease Active U isabella 3-31 ity of 00:00: [place] [facility] Generalize Generalize Disease Active U isabella d anxiety d anxiety 05-18 ity of disorder disorder 00:00: [place] [address] Medical Branch Essential Essential Disease Active Overview: Univers hypertensi hypertensi 3-31 ICD10 it y of on on 00:00: Diagnosis Term Medical Seasoning [place] Branch Utility Hemorrhoid Hemorrhoid Disease Active [facility] Allergies, Adverse Reactions, Alerts Allergy Allergy Status Severity Reaction(s) Onset Inactive Treating Comm ents Source Name Type Date Date Clinician NO KNOWN Drug Active Univers ALLERGIE Class ity [facility] Social History Social Habit Start Date Stop Date Quantity Comments Source Exposure to Yes [facility] SARS-CoV-2 (event) Medica [facility] Gender identity [facility] Sexual orientation Method [facility] Alcohol intake 2019-08-17 2019-08-17 [facility] 00:00:00 00:00:00 [facility] Sex Assigned At [birth year] Met [facility] [place] 00:00:00 00:00:00 Smoking Status Start Date Stop Date Source Tobacco smoking consumption [facility] unknown Never smoker [facility] Medications Ordered Filled Start Stop Current Ordering Indication Dosage Frequency Signature Comments Components Source Medication Medication Date Date Medication? Clinician (SIG) Name Name acetaminoph 2020- No 1000mg 1,000 mg, Univers en 08-20 Oral, ity of (TYLENOL) 00:28: 00:36 ONCE, 1 [place] tablet 00 :00 dose, [facility] 1,000 mg 08/20/19 at Branch 1929, MAURICIO ketorolac 2019- No 15mg 15 mg, Unive rs (TORADOL) 08-20 Slow IV ity of injection 00:28: 00:36 Push, [place] 15 mg 00 :00 ONCE, 1 Medical dose, [facility] 08/20/19 at 1929, MAURICIO
Fa culty member approving Restricted medication : SANFORD TAPIA codeine-gua 2020- No 10mL 10 mL, Uni vers ifenesin 08-19 Oral, ity of (ROBITUSSIN 23:15: 22:31 [place] 1 [place] 10-100 00 :00 dose, [facility] reddy mg/5 mL 08/20/19 at [place] solution 10 1815, MAURICIO mL methylpredn 2019-2019- No 125mg 125 mg, IV Univers isolone sod 08-19 Piggyback, i ty of succ 22:02: 22:26 ONCE, 1 [place] (SOLU-MEDRO 00 :00 dose, [facility] ical L) 08/20/19 at Branch injection 1715, STAT 125 mg albuterol 2019- 2020- No 2{puff} 2 Puff, U nivers (VENTOLIN) 08-19 Inhalation it y of inhaler 2 22:02: 22:58 , [place] 1 [place] Puff 00 :00 dose, [facility] 08/20/19 at Branch 1715, MAURICIO
Is this order for a patient with suspected or confirmed COVID-19 infection? Yes ondansetron 2019-0 2019- No 4mg 4 mg, Slow Univers (ZOFRAN 08-19 IV Push, ity of (PF)) 22:01: 22:26 ONCE, 1 [place] injection 4 00 :00 dose, [facility] ical mg 08/20/19 at Branch 1715, MAURICIO NaCl 0.9% 2019- No 1000mL at 999 Uni vers (NS) IV 08-19 mL/hr, ity of infusion 22:01: 23:00 [place] 1,000 mL 00 :00 s, ONCE, 1 Medic al dose, [facility] 08/20/19 at 1715, MAURICIO albuterol 2020-0 Yes [id number] 2{puff} Inhale 2 Univers 90 -02 Puffs ity of mcg/actuati 00:00: every 6 [place] on inhaler 00 (six) Medical hours as Branch needed for Wheezing or Shortness of Breath. ondansetron 2020-0 Yes [id number] 4mg Take 1 Univers (ZOFRAN 08-19 tablet by ity of ODT) 4 mg 00:00: mouth [place] disintegrat 00 every 8 Medic al ing tablet (eight) Branch hours as needed for Nausea and Vomiting (N/V). codeine-gua 2020-0 Yes [id number] 10mL Take 10 mL Univers ifenesin 02 by mouth ity of 10-100 mg/5 00:00: every 6 [place] as mL solution 00 (six) Medical hours as Branch needed for Cough. cefTRIAXone 2019-2019- No 1000mg 1,000 mg, Univers (ROCEPHIN) 08-17 06-30 IV ity of 1,000 mg in 02:45: 02:22 Piggyback, [place] NaCl 0.9% 00 :00 ONCE, 1 Medical (NS) 50 mL dose, [facility] Bran ch MINI-BAG 08/17/19 at 2145, 50 mL
Reas on for Anti-Infec tive: Documented Infection< br>Documen barbie Infection Site: Urine
D uration of Therapy: 7 days ketorolac 2019- No 15mg 15 mg, Unive rs (TORADOL) 08-17 0630 Slow IV ity of injection 01:45: 01:11 Push, [place] 15 mg 00 :00 ONCE, 1 Medical dose, [facility] Branch 08/17/19 at 2045, Routine
bridge crew member approving Restricted medication : JENNIE SHEPPARD NaCl 0.9% 2019- No 1000mL at 999 Uni vers (NS) bolus 08-17 06-30 mL/hr, ity of infusion 00:45: 02:31 1,000 mL, [place] 1,000 mL 00 :00 IV Medical Infusion, Branch ONCE, 1 dose, [facility] 08/17/19 at 1945, MAURICIO cefpodoxime 2019-0 2020- No [id number] 100mg Take 1 Univers 100 mg -15 09-07 tablet by ity of tablet 00:00: 04:59 mouth 2 [place] 00 :00 (two) Medical times Branch daily for 7 days. cefpodoxime 2020-0 2020- No [id number] 100mg Take 1 Univers 100 mg 6- 07-07 tablet by ity of tablet 00:00: 04:59 mouth 2 [place] 00 :00 (two) Medical times Branch daily for 7 days. cefpodoxime 2020-0 2020- No [id number] 100mg Take 1 Univers 100 mg 6- 07-07 tablet by ity of tablet 00:00: 04:59 mouth 2 [place] 00 :00 (two) Medical times Branch daily for 7 days. valsartan-h 2020-0 Yes 1{tbl} Take 1 Un [...] by mouth ity of 02:06: every 6 [place] 29 (six) Medical hours as Branch needed. [...] by mouth ity of 02:06: every 6 [place] 29 (six) Medical hours as Branch needed. [...] by mouth ity of 02:06: every 6 [place] 29 (six) Medical hours as Branch needed. [...] by mouth ity of 02:06: every 6 [place] 29 (six) Medical hours as Branch needed. [...] by mouth ity of 02:06: every 6 [place] 29 (six) Medical hours as Branch needed. diazePAM 2019- 2020- No 5mg 5 mg, Univers (VALIUM) 03-28-08 Oral, ity of tablet 5 mg 01:30: 00:44 ONCE, 1 [place] 00 :[place] dose, Fri Medical 03/27/19 at Branch 1930, MAURICIO ketorolac 2019- 2020- No 30mg 30 mg, Unive rs (TORADOL) 03-28-08 Intramuscu ity of injection 01:30: 00:44 lar, ONCE, [place] 30 mg 00 :00 1 dose, Medical 03/27/19 Branch at 1930, MAURICIO
Fa culty member approving Restricted medication : TRACY MARTIN cyclobenzap 2019-0 2020- No [id number] 5mg Take 1 Univers rine 5 mg 03-27 02-15 tablet by ity of tablet 00:00: 05:59 mouth 3 [place] 00 :00 (three) Medical times Branch daily for 7 days. clobetasol Yes [id number] Apply to Univers (TEMOVATE) 4-24 area(s) 2 ity of 0.05 % 00:00: (two) [place] cream 00 times Medical daily. Branch clobetasol Yes [id number] Apply to Univers (TEMOVATE) 4-24 area(s) 2 ity of 0.05 % 00:00: (two) [place] cream 00 times Medical daily. Branch clobetasol Yes [id number] Apply to Univers (TEMOVATE) 4-24 area(s) 2 ity of 0.05 % 00:00: (two) [place] cream 00 times Medical daily. Branch clobetasol Yes [id number] Apply to Univers (TEMOVATE) 4-24 area(s) 2 ity of 0.05 % 00:00: (two) [place] cream 00 times Medical daily. Branch clobetasol Yes [id number] Apply to Univers (TEMOVATE) 4-24 area(s) 2 ity of 0.05 % 00:00: (two) [place] cream 00 times Medical daily. Branch enalapril Yes Take by Unive rs (VASOTEC) 3-31 mouth ity of 10 mg 21:02: daily. [place] tablet Medical Branch SERTraline Yes 50mg Take 50 mg U nivers (ZOLOFT) 50 3-31 by mouth ity of mg tablet 21:02: daily. [address] Branch naproxen Yes 500mg Take 500 Univ ers (NAPROSYN) 3-31 mg by ity of 500 mg 21:02: mouth 2 [place] tablet 55 (two) Medical times [place] daily with meals. tiZANidine Yes 4mg Take 4 mg Un [place] (ZANAFLEX) 3-31 by mouth ity o f 4 mg tablet 21:02: every 6 [place] 55 (six) Medical hours as Branch needed. enalapril Yes Take by Unive rs (VASOTEC) 3-31 mouth ity of 10 mg 21:02: daily. [address] SERTraline Yes 50mg Take 50 mg U nivers (ZOLOFT) 50 3-31 by mouth ity of mg tablet 21:02: daily. [address] Branch naproxen Yes 500mg Take 500 Univ ers (NAPROSYN) 3-31 mg by ity of 500 mg 21:02: mouth 2 [place] tablet 55 (two) Medical times Branch daily with meals. tiZANidine 0 Yes 4mg Take 4 mg Un [place] (ZANAFLEX) 3-31 by mouth ity o f 4 mg tablet 21:02: every 6 [place] 55 (six) Medical hours as Branch needed. enalapril Yes Take by Unive rs (VASOTEC) 3-31 mouth ity of 10 mg 21:02: daily. [place] [address] Medical Branch SERTraline 2014-0 Yes 50mg Take 50 mg U nivers (ZOLOFT) 50 3-31 by mouth ity of mg tablet 21:02: daily. [address] Branch naproxen 2013-0 Yes 500mg Take [...] Branch needed. enalapril 2013-0 Yes Take by Unive rs (VASOTEC) 3-31 mouth ity of 10 mg 21:02: daily. [place] [address] Medical Branch SERTraline 0 Yes 50mg Take 50 mg U nivers (ZOLOFT) 50 3-31 by mouth ity of mg tablet 21:02: daily. [address] naproxen Yes 500mg Take 500 Univ ers (NAPROSYN) 3-31 mg by ity of 500 mg 21:02: mouth 2 [place] tablet 55 (two) Medical times Branch daily with meals. tiZANidine 0 Yes 4mg Take 4 mg Un [place] (ZANAFLEX) 3-31 by mouth ity o f 4 mg tablet 21:02: every 6 [place] 55 (six) Medical hours as Branch needed. enalapril 0 Yes Take by Unive rs (VASOTEC) 3-31 mouth ity of 10 mg 21:02: daily. [place] [address] Medical Branch SERTraline 0 Yes 50mg Take 50 mg U nivers (ZOLOFT) 50 3-31 by mouth ity of mg tablet 21:02: daily. [address] Branch naproxen 0 Yes 500mg Take [...] Immunizations Ordered Filled Immunization Date Status Comments Sourc e Immunization Name Name TDAP 2013-05-18 Completed University of 00:00:00 [place] [facility] Tdap 2013-05-18 Completed University of 00:00:00 [place] [facility] TDAP 2013-05-18 Completed University of 00:00:00 [place] [facility] TDAP 2013-05-18 Completed University of 00:00:00 [place] [facility] TDAP 2013-05-18 Completed University of 00:00:00 [facility] Vital Signs Vital Name Observation Time Observation Value Comments Source Systolic blood 2019-08-21 02:00:00 134 mm[Hg] Univer sity of pressure [place] [facility] Diastolic blood 2019-08-21 02:00:00 79 mm[Hg] Unive rsity of pressure [place] [facility] Heart rate 2019-08-21 02:00:00 90 /min Universi ty of [place] [facility] Respiratory rate 2019-08-21 02:00:00 17 /min Univ ersity of [place] [facility] Oxygen saturation in 2019-08-21 02:00:00 96 /min University of Arterial blood by [place] MASS-ACTIVE [employer] reddy Pulse oximetry Branch Body temperature 2019-08-20 21:11:00 37.94 Trish Univ ersity of [place] [facility] Body weight 2019-08-20 21:11:00 108.863 kg Universi ty of [place] [facility] BMI 2019-08-20 21:11:00 39.94 kg/m2 Universi ty of [place] [facility] Systolic blood 2019-08-21 02:00:00 134 mm[Hg] Univer sity of pressure [place] [facility] Diastolic blood 2019-08-21 02:00:00 79 mm[Hg] Unive rsity of pressure [place] [facility] Heart rate 2019-08-21 02:00:00 90 /min Universi ty of [place] [facility] Respiratory rate 2019-08-21 02:00:00 17 /min Univ ersity of [place] [facility] Oxygen saturation in 2019-08-21 02:00:00 96 /min University of Arterial blood by [employer] reddy Pulse oximetry Branch Body temperature 2019-08-20 21:11:00 37.94 Trish Univ ersity of [place] [facility] Body weight 2019-08-20 21:11:00 108.863 kg Universi ty of [place] [facility] BMI 2019-08-20 21:11:00 39.94 kg/m2 Universi ty of [place] [facility] Systolic blood 2019-08-18 01:00:00 156 mm[Hg] Univer sity of pressure [place] [facility] Diastolic blood 2019-08-18 01:00:00 98 mm[Hg] Unive rsity of pressure [place] [facility] Heart rate 2019-08-18 01:00:00 88 /min Universi ty of [place] [facility] Respiratory rate 2019-08-18 01:00:00 18 /min Univ ersity of [place] [facility] Oxygen saturation in 2019-08-18 01:00:00 97 /min University of Arterial blood by [facility] Pulse oximetry Branch Body temperature 2019-08-18 00:25:00 37.78 Trish Univ ersity of [place] [facility] Body weight 2019-08-18 00:25:00 108.863 kg Universi ty of [place] [facility] BMI 2019-08-18 00:25:00 39.94 kg/m2 Universi ty of [place] [facility] Systolic blood 2019-08-18 01:00:00 156 mm[Hg] Univer sity of pressure [place] [facility] Diastolic blood 2019-08-18 01:00:00 98 mm[Hg] Unive rsity of pressure [place] [facility] Heart rate 2019-08-18 01:00:00 88 /min Universi ty of [place] [facility] Respiratory rate 2019-08-18 01:00:00 18 /min Univ ersity of [place] [facility] Oxygen saturation in 2019-08-18 01:00:00 97 /min University of Arterial blood by [facility] Pulse oximetry Branch Body temperature 2019-08-18 00:25:00 37.78 Trish Univ ersity of [place] [facility] Body weight 2019-08-18 00:25:00 108.863 kg Universi ty of [place] [facility] BMI 2019-08-18 00:25:00 39.94 kg/m2 Universi ty of [place] [facility] Systolic blood 2019-03-28 00:56:20 147 mm[Hg] Univer sity of pressure [place] [facility] Diastolic blood 2019-03-28 00:56:20 87 mm[Hg] Unive rsity of pressure [place] [facility] Heart rate 2019-03-28 00:56:20 73 /min Universi ty of [place] [facility] Respiratory rate 2019-03-28 00:56:20 16 /min Univ ersity of [place] [facility] Oxygen saturation in 2019-03-28 00:56:20 99 /min University of Arterial blood by [facility] Pulse oximetry Branch Body temperature 2019-03-27 23:49:00 36.83 Trish [facility] Body height 2019-03-27 23:49:00 165.1 cm Universi ty of [facility] Body weight 2019-03-27 23:49:00 104.327 kg Universi ty of [facility] BMI 2019-03-27 23:49:00 38.27 kg/m2 Universi ty [facility] Systolic blood 2019-03-28 00:56:20 147 mm[Hg] Univer sity of pressure [facility] Diastolic blood 2019-03-28 00:56:20 87 mm[Hg] [facility] Heart rate 2019-03-28 00:56:20 73 /min [facility] Respiratory rate 2019-03-28 00:56:20 16 /min [facility] Oxygen saturation in 2019-03-28 00:56:20 99 /min University of Arterial blood by [facility] Pulse oximetry Branch Body temperature 2019-03-27 23:49:00 36.83 Trish [facility] Body height 2019-03-27 23:49:00 165.1 cm Universi ty of [facility] Body weight 2019-03-27 23:49:00 104.327 kg Universi ty [facility] BMI 2019-03-27 23:49:00 38.27 kg/m2 [facility] Procedures Procedure Date / Time Performing Clinician Source Performed URINALYSIS 2019-08-21 00:35:00 [facility] COVID-19 (ID NOW RAPID 2019-08-20 22:19:00 [facility] TEST[facility]) [facility] Branch LIPASE 2019-08-20 21:49:00 Sanford Tapia [facility] COMP. METABOLIC PANEL 2019-08-20 21:49:00 [facility] ([id number]) [facility] CBC WITH DIFFERENTIAL 2019-08-20 21:49:00 [facility] Tap[facility] XR CHEST 1 VW 2019-08-20 21:37:11 [facility] NOTICE OF PRIVACY 2019-08-20 21:02:00 Doctor Unassigned, No Univ ersity of [facility] Medical Branch CONSENT/REFUSAL FOR 2019-08-20 21:01:47 Doctor Unassigned, No Un iversity of [place] DIAGNOSIS AND TREATMENT Name Medical Branch COMP. METABOLIC PANEL 2019-08-18 00:50:00 Jennie Sheppard [facility] ([id number]) Medical [place] URINALYSIS 2019-08-18 00:50:00 Jennie Sheppard [place] o f [facility] CBC WITH DIFFERENTIAL 2019-08-18 00:50:00 Jennie Sheppard [facility] POCT TEST 2019-08-18 00:49:00 Jennie Sheppard Universi [facility] NOTICE OF PRIVACY 2019-08-18 00:19:16 Doctor Unassigned, No Univ ersity of [facility] CONSENT/REFUSAL FOR 2019-08-18 00:18:39 Doctor Unassigned, No Un iversity of [place] DIAGNOSIS AND TREATMENT Name [facility] XR SACRUM AND COCCYX 2019-03-28 01:04:34 Rosalind Clancy [facility] NOTICE OF PRIVACY 2019-03-27 23:45:42 Doctor Unassigned, No Univ ersity of [facility] Branch CONSENT/REFUSAL FOR 2019-03-27 23:44:21 Doctor Unassigned, No Un iversity of [place] DIAGNOSIS AND TREATMENT Name [facility] Encounters Start End Encounter Admission Attending Care Care Encounter Source Date/Time Date/Time Type Type Clinicians Facility Department ID 2019-08-20 2019-08-20 Emergency [facility] [id number] 16:13:14 21:10:00 Shinlawrence Cox [id number] [place] 4.2.7.2.686 [place] [id number] 2019-08-20 2019-08-20 Emergency [facility] [id number] Univers 16:13:14 21:10:00 Shinlawrence Cox 350.1.13.10 i ty of [place] 4.2.7.2.686 [facility] [id number] [facility] 084 Branch 2019-08-20 2019-08-20 Emergency X [facility] ERT [id number] Univers 16:13:14 16:13:14 SANFORD ity of [facility] 2019-08-20 2019-08-20 Orders Doctor GARRETT [id number] 00:00:00 00:00:00 Only Unassigned, GONZALEZ 350.1.13.10 [facility] 4.2.7.2.686 [id number] 2019-08-20 2019-08-20 Orders Doctor TUCKER [id number] Univers 00:00:00 00:00:00 Only Unassigned, GONZALEZ 350.1.13.10 ity of [facility] 4.2.7.2.686 [place] as [id number] [address] 2019-08-17 2019-08-17 Emergency [facility] [id number] 19:21:47 21:45:00 Jennie R [place] 350.1.13.10 [place] 4.2.7.2.686 [place] [id number] [facility] 2019-08-17 2019-08-17 Emergency [facility] [id number] Univers 19:21:47 21:45:00 Jennie R [place] 350.1.13.10 i ty of [place] 4.2.7.2.686 [place] [facility] [id number] [address] 2019-08-17 2019-08-17 Emergency X [facility] ERT [id number] Univers 19:21:47 19:21:47 JENNIE see of [facility] 2019-08-17 2019-08-17 Orders Doctor TUCKER [id number] 00:00:00 00:00:00 Only Unassigned, GONZALEZ 350.1.13.10 [facility] 4.2.7.2.686 [id number] 2019-08-17 2019-08-17 Orders Doctor TUCKER [id number] Univers 00:00:00 00:00:00 Only Unassigned, GONZALEZ 350.1.13.10 ity of [facility] 4.2.7.2.686 [place] [id number] [address] 2019-03-27 2019-03-27 Emergency X ASTON, [facility] ERT [id number] Univers 17:52:46 20:08:00 ROSALIND itforeign [facility] 2019-03-27 2019-03-27 Emergency [place], [facility] [id number] 17:52:46 20:08:00 Rosalind Cox 350.1.13.10 [place] 4.2.7.2.686 [place] [id number] [facility] 2019-03-27 2019-03-27 Emergency [facility] [id number] [facility] 17:52:46 20:08:00 Rosalind Cox 350.1.13.10 ity [facility] 4.2.7.2.686 [facility] [id number] [address] Results Test Description Test Time Test Comments Results Result Comments Source URINALYSIS 2019-08-21 01:12:00 Test Item Value Reference Range Interpretation Comme nts APPEARANCE (test code = Clear Clear 1897246717) COLOR (test code = 5717439801) Yellow Yellow PH (test code = 8076622822) 4.8-8.0 SP GRAVITY (test code = 1.003-1.030 6814978109) GLU U QUAL (test code = Normal Normal 1086794847) BLOOD (test code = 5832736377) 1+ Negative A KETONES (test code = 3711133962) 20 mg/dL Negative A PROTEIN (test code = 2887-8) Negative Negative UROBILIN (test code = Normal Normal 4643580361) BILIRUBIN (test code = Negative Negative 8102646113) NITRITE (test code = 4239001264) Negative Negative LEUK THANIA (test code = Negative Negative 7912217517) RBC/HPF (test code = 5767693757) See_Comment H [Automated message] The system which ge nerated this result transmit barbie reference range: 0 - 3 HP F. The reference range was not used to interpret th is result as normal/abnormal . WBC/HPF (test code = 3636847356) See_Comment [Automated message] The system which ge nerated this result transmit barbie reference range: 0 - 5 HP F. The reference range was not used to interpret th is result as normal/abnormal . BACTERIA (test code = Few Negative A 2363171194) MUCOUS (test code = 4760989732) Slight Negative LPF A SQ EPITH (test code = HPF 8113419745) Lab Interpretation (test code = Abnormal 18524-9) [facility]ID NOW RAPID TESTING)2019-08-20 22:34:00 Test Item Value Reference Range Interpretation Comments SARS-CoV-2 Rapid ID NOW Positive Not Detected A (test code = 50359-7) JAVED (test code = JAVED) ID NOW COVID-19 Assay is an isothermal nucleic acid amplification test intended for the qualitative detection of nucleic acid from SARS-CoV-2 viral RNA in nasopharyngeal (AUTOMOBILE SERVICE ADVISOR) specimens. It is used under Emergency Use [...] indicated. Lab Interpretation Abnormal (test code = 45495-7) [facility] MET[facility]OLIC PAN[facility] ([id number])2019-08-20 22:11:00 Test Item Value Reference Range Interpretation Comments NA (test code = 137 mmol/L 135-145 3795105610) K (test code = 3.3 mmol/L 3.5-5 L 4982658746) CL (test code = 99 mmol/L 98-108 2039406605) CO2 TOTAL (test code = 30 mmol/L 23-31 2885626619) AGAP (test code = 2-16 1509689814) BUN (test code = 8 mg/dL 7-23 0758969662) GLUCOSE (test code = 112 mg/dL 70-110 H 8376321029) CREATININE (test code = 0.76 mg/dL 0.5-1.04 2229874182) TOTAL BILI (test code = 0.6 mg/dL 0.1-1.0 5367200837) CALCIUM (test code = 8.7 mg/dL 8.6-10.6 1548399680) T PROTEIN (test code = 7.7 g/dL 6.3-8.2 6320630479) ALBUMIN (test code = 4.3 g/dL 3.5-5 3696631429) ALK PHOS (test code = 49 U/L 34-122 5121484147) ALTv (test code = 21 U/L 5-35 1742-6) AST(SGOT) (test code = 38 U/L 13-40 9000671643) eGFR Calculation mL/min/1.73m2 (Non-) (test code = 6201863481) eGFR Calculation mL/min/1.73m2 () (test code = 3496559637) JAVED (test code = JAVED) Association of [...] tests). Lab Interpretation Abnormal (test code = 60582-3) [facility]2020-[facility] 22:10:00 Test Item Value Reference Range Interpretation Comments LIPASE (test code = 2109279328) 185 U/L 0-220 Lab Interpretation (test code = Normal 99873-0) [facility] WITH [id number] 21:59:00 Test Item Value Reference Range Interpretation Comments WBC (test code = See_Comment L [Automated 8390-2) message] The sy stem which generated this [...] RDW-SD (test code = 42.5 fL 39-49.9 57795-2) RDW-CV (test code = 13.1 % 12-15.5 788-0) PLT (test code = See_Comment [Automated 777-3) message] The sy stem which generated this result transmitted reference range : 166 - 358 10*3/ ?L. The reference r ginegr was not used to interpret this result as normal/abnormal . MPV (test code = 10.0 fL 9.5-12.9 99785-6) NRBC/100 WBC (test See_Comment [Automat ed code = 5522362360) message] The system which generated this result transmitted reference range : 0.0 - 10.0 /100 WBCs. The refer ence range was not u sed to interpret th is result as normal/abnormal . NRBC x10^3 (test code <0.01 See_Comment [Auto mated = 3194069078) message] The s [employer] which generated this result transmitted reference range : 10*3/?L. The reference range was not used to interpret this result as normal/abnormal . GRAN MAT (NEUT) % 67.8 % (test code = 770-8) IMM GRAN % (test code 0.50 % = 0691146710) LYMPH % (test code = 26.0 % 736-9) MONO % (test code = 5.7 % 5905-5) EOS % (test code = 0.0 % 713-8) BASO % (test code = 0.0 % 706-2) GRAN MAT x10^3(ANC) 2.74 10*3/uL 1.88-7.09 (test code = 3419967700) IMM GRAN x10^3 (test <0.03 0-0.06 code = 9891809350) LYMPH x10^3 (test code 1.05 10*3/uL 1.32-3.29 L = 731-0) MONO x10^3 (test code 0.23 10*3/uL 0.33-0.92 L = 742-7) EOS x10^3 (test code = <0.03 0.03-0.39 L 711-2) BASO x10^3 (test code <0.03 0.01-0.07 = 704-7) Lab Interpretation Abnormal (test code = 67248-8) [id number] 21:41:04HISTORY: Cough and fever. TECHNIQUE: Portable AP [...] consolidation.Findings could be secondary to nonspecific viral infection.[facility], Radiant Results Inft User - 08/20/2019 4:42 [...] Minimal congestion in the lungs without focal consol idation.Findings could be secondary to nonspecific viral infection.[facility]. METABOLIC PANEL (45880)2019-08-18 01:54:00 Test Item Value Reference Range Interpretation Comments NA (test code = 137 mmol/L 135-145 9857627027) K (test code = 3.5 mmol/L 3.5-5 1152988739) CL (test code = 102 mmol/L 98-108 7655155357) CO2 TOTAL (test code = 26 mmol/L 23-31 6510895904) AGAP (test code = 2-16 7922178633) BUN (test code = 13 mg/dL 7-23 0095621223) GLUCOSE (test code = 112 mg/dL 70-110 H 6880363604) CREATININE (test code = 0.78 mg/dL 0.5-1.04 6616846924) TOTAL BILI (test code = 0.7 mg/dL 0.1-1.0 5853729888) CALCIUM (test code = 9.0 mg/dL 8.6-10.6 9938108121) T PROTEIN (test code = 7.8 g/dL 6.3-8.2 7115167469) ALBUMIN (test code = 4.5 g/dL 3.5-5 7070846699) ALK PHOS (test code = 58 U/L 34-122 7347314575) ALTv (test code = 27 U/L 5-35 1742-6) AST(SGOT) (test code = 48 U/L 13-40 H 4512115554) eGFR Calculation mL/min/1.73m2 (Non-) (test code = 8350004083) eGFR Calculation mL/min/1.73m2 () (test code = 0847627001) JAVED (test code = JAVED) Association of [...] tests). Lab Interpretation Abnormal (test code = 40187-3) [facility] Test Item Value Reference Range Interpretation Comments APPEARANCE (test code = Hazy Clear A 5772218222) COLOR (test code = Toma Yellow A 5710632574) PH (test code = 4.8-8.0 8917053920) SP GRAVITY (test code = 1.003-1.030 H 5410371798) GLU U QUAL (test code = Normal Normal 1918699234) BLOOD (test code = 1+ Negative A 7987042805) KETONES (test code = 5 mg/dL Negative A 3613632896) PROTEIN (test code = 30 mg/dL Negative A 2887-8) UROBILIN (test code = Normal Normal 4481520909) BILIRUBIN (test code = 2 mg/dL Negative A 2231150738) NITRITE (test code = Positive Negative A 7094603642) LEUK THANIA (test code = 75/uL Negative A 5191915744) RBC/HPF (test code = See_Comment H [Autom ated message] 2750734737) The system [employer] generated this result transmitted ref erence range: 0 - 3 HP F. The reference range was not used to int erpret this result as normal/abnormal . WBC/HPF (test code = See_Comment H [Autom ated message] 4820514366) The system [employer] generated this result transmitted ref erence range: 0 - 5 HP F. The reference range was not used to int erpret this result as normal/abnormal . BACTERIA (test code = Many Negative A 7804530322) MUCOUS (test code = Slight Negative LPF A 0945433606) SQ EPITH (test code = HPF 8564829988) Lab Interpretation (test Abnormal code = 58467-2) [facility] WITH [id number] 01:10:00 Test Item Value Reference Range Interpretation [...] RDW-SD (test code = 42.2 fL 39-49.9 03685-6) RDW-CV (test code = 13.1 % 12-15.5 788-0) PLT (test code = See_Comment L [Automated 777-3) message] The sy stem which generated this result transmitted reference range : 166 - 358 10*3/ ?L. The reference r ginger was not used to interpret this result as normal/abnormal . MPV (test code = 10.7 fL 9.5-12.9 53705-2) NRBC/100 WBC (test See_Comment [Automat ed code = 7028047075) message] The system which generated this result transmitted reference range : 0.0 - 10.0 /100 WBCs. The refer ence range was not u sed to interpret th is result as normal/abnormal . NRBC x10^3 (test code <0.01 See_Comment [Auto mated = 5131671920) message] The s ystem which generated this result transmitted reference range : 10*3/?L. The reference range was not used to interpret this result as normal/abnormal . GRAN MAT (NEUT) % 56.5 % (test code = 770-8) IMM GRAN % (test code 0.40 % = 9476957728) LYMPH % (test code = 36.1 % 736-9) MONO % (test code = 6.6 % 5905-5) EOS % (test code = 0.2 % 713-8) BASO % (test code = 0.2 % 706-2) GRAN MAT x10^3(ANC) 2.72 10*3/uL 1.88-7.09 (test code = 3266466646) IMM GRAN x10^3 (test <0.03 0-0.06 code = 5328412448) LYMPH x10^3 (test code 1.74 10*3/uL 1.32-3.29 = 731-0) MONO x10^3 (test code 0.32 10*3/uL 0.33-0.92 L = 742-7) EOS x10^3 (test code = <0.03 0.03-0.39 L 711-2) BASO x10^3 (test code <0.03 0.01-0.07 = 704-7) Lab Interpretation Abnormal (test code = 55766-2) [id number] 00:49:00 Test Item Value Reference Range Interpretation Comments POCT PREG (test code = 1605) negative POCT PREG LOT # (test code = 3575) [id number] POCT PREG TEST DATE (test 09/17/2020 code = 3576) Lab Interpretation (test code = Normal 84485-2) [facility] AND [id number] 01:12:39 Impression: No appreciable fracture lines. Clinical [...] of L4 on L5. Sacroiliac joints arepatent. Visualizedsacral arcuate lines are intact. There are noappreciable fracture lines. No displaced coccygeal segments are visualized.Visualized pubic rami are intact. IMPRESSIONImpression: No appreciable fracture lines. Clinical follow-up is advised. If clinicalsymptoms persist, follow up imaging is suggested.RL: [id number] of Report [facility]"
[2022-10-20] MEDS ORDERED: IBUPROFEN 400 MG TAB ONE (21:09)
[2022-10-20] MEDS ORDERED: IBUPROFEN 200 MG TAB PO ONE (21:09)
--- NOTE | 2022-10-20 21:18 | RAD REPORT ---
EXAM DESCRIPTION: RAD - Ankle Left 3 View - 10/20/2022 8:59 pm CLINICAL HISTORY: Pain;Swelling COMPARISON: Foot Left 3 View dated 07/07/2021; Foot Left 3 View dated 10/20/2022 TECHNIQUE: Left ankle, 3 views. FINDINGS: No fracture, dislocation or periosteal reaction. No joint effusion seen. Stable hindfoot f usion cannulated screws. Stable degenerative changes of the tibiotalar articulation with some collaps e of the talar dome, and adjacent heterotopic opacification. Soft tissue swelling about the lateral m alleolus. IMPRESSION: Soft tissue swelling about the lateral malleolus. Chronic findings as above.
--- NOTE | 2022-10-20 21:27 | ER ---
Nurse's Notes [facility] Name: Fatimah Morales Age: 52 yrs Sex: Female : 1970 Arrival Date: 10/20/2022 Time: 19:45 Bed 11 Private MD: Diagnosis: Sprain of ankle;Age-related osteoporosis without current pathological fracture;Sprain of foot Presentation: 10/20 19:54 Chief complaint: Patient states: "Yesterday, I twisted my left ankle and fell. It feels mb9 like someone has a knife in it and they are twisting it. It hurts really bad". Coronavirus screen: At this time, the client does not indicate any symptoms associated with coronavirus-19. Ebola Screen: No symptoms or risks identified at this time. Initial Sepsis Screen: Does the patient meet any 2 criteria? No. Patient's initial sepsis screen is negative. Does the patient have a suspected source of infection? No. Patient's initial sepsis screen is negative. Risk Assessment: Do you want to hurt yourself or someone else? Patient reports no desire to harm self or others. Onset of symptoms was 2022. 19:54 Method Of Arrival: Ambulatory mb9 19:54 Acuity: BRIANNA 4 mb9 Triage Assessment: 19:55 General: Appears uncomfortable, Behavior is calm, cooperative. Pain: Complains of pain mb9 in left foot Quality of pain is described as throbbing. Neuro: Rodriguez Agitation-Sedation Scale (RASS): 0 - Alert and Calm Level of Consciousness is awake, alert, obeys commands, Oriented to person, place, time, situation, Appropriate for age. Cardiovascular: Patient's skin is warm and dry. Respiratory: Airway is patent Respiratory effort is even, unlabored, Respiratory pattern is regular, symmetrical. GI: No signs and/or symptoms were reported involving the gastrointestinal system. : No signs and/or symptoms were reported regarding the genitourinary system. Derm: Skin is pink, warm \\T\\ dry. Musculoskeletal: Range of motion: intact in all extremities. 19:57 Musculoskeletal: Swelling present in left foot mb9 Historical: - Allergies: 19:55 No Known Allergies; mb9 - Home Meds: 19:55 hydrocodone-acetaminophen 7.5-325 mg/15 mL Oral soln [Active]; gabapentin 300 mg Oral mb9 cap 1 cap nightly [Active]; - PMHx: 19:55 Hypertensive disorder; mb9 - PSHx: 19:55 reconstruction-left foot; Total abdominal hysterectomy; mb9 - Immunization history:: Adult Immunizations up to date. - Social history:: Smoking status: Patient denies any tobacco usage or history of. Screenin:00 [facility] ED Fall Risk Assessment (Adult) History of falling in the last 3 months, pf1 including since admission No falls in past 3 months (0 pts) Confusion or Disorientation No (0 pts) Intoxicated or Sedated No (0 pts) Impaired Gait Yes (1 pt) Mobility Assist Device Used No (0 pt) Altered Elimination No (0 pt) Score/Fall Risk Level 0 - 2 = Low Risk Oriented to surroundings, Maintained a safe environment, Educated pt \\T\\ family on fall prevention, incl call for assistance when getting out of bed, Assessed \\T\\ reinforced patient's understanding of fall precautions, Provided non-skid footwear, Hourly rounding (assess needs \\T\\ fall precautionary measures) done, Used ambulatory aids as needed (educated on \\T\\ assisted with), Used gait belt as appropriate. 21:00 Abuse screen: Denies threats or abuse. Nutritional screening: No deficits noted. pf1 Tuberculosis screening: No symptoms or risk factors identified. Assessment: 21:30 Reassessment: Patient appears in no apparent distress at this time. Patient and/or pf1 family updated on plan of care and expected duration. Pain level reassessed. Patient is alert, oriented x 3, equal unlabored respirations, skin warm/dry/pink. Patient states feeling better. Patient states symptoms have improved. Vital Signs: 19:54 BP 164 / 97; Pulse 86; Resp 18; Temp 97.4; Pulse Ox 100% ; Weight 102.51 kg; Height 5 mb9 ft. 5 in. ; Pain 9/10; 22:00 BP 150 / 78; Pulse 82; Resp 16; Pulse Ox 100% ; Pain 4/10; pf1 19:54 Body Mass Index 37.61 (102.51 kg, 165.1 cm) mb9 19:54 Pain Scale: Adult mb9 22:00 Pain Scale: Adult pf1 ED Course: 19:49 Patient arrived in ED. kj1 19:51 Josefina Bornson FNP-C is PHCP. snw 19:52 Roshan Nickerson MD is Attending Physician. snw 19:55 Triage completed. mb9 19:55 Arm band placed on. mb9 20:00 Patient has correct armband on for positive identification. Bed in low position. Call pf1 light in reach. 21:01 Foot Left 3 View XRAY In Process Unspecified. EDMS 21:01 Ankle Left 3 View XRAY In Process Unspecified. EDMS 21:40 Ortho shoe applied to left foot. walking boot. pf1 22:00 Provided Education on: medication education and walking boot instructions. pf1 22:00 No provider procedures requiring assistance completed. pf1 22:00 Patient did not have IV access during this emergency room visit. pf1 Administered Medications: 21:04 Drug: Ibuprofen PO 600 mg Route: PO; mb9 22:00 Follow up: Response: No adverse reaction; Marked relief of symptoms; Pain is decreased pf1 Medication: 22:00 VIS not applicable for this client. pf1 Outcome: 21:26 Discharge ordered by . snw 22:00 Discharged to home ambulatory. pf1 22:00 Condition: improved 22:00 Discharge instructions given to patient, Instructed on discharge instructions, follow up and referral plans. Demonstrated understanding of instructions, follow-up care, medications, Prescriptions given X 1. 22:00 Patient left the ED. pf1 Signatures: Dispatcher [employer] EDMT Josefina Bronson, DANIELAC SILVER STEWARD-Johnw Michelle Kirk kj1 Alisha Perla RN RN mb9 Angelina Fagan RN RN pf1 Corrections: (The following items were deleted from the chart) 19:57 19:55 Derm: Skin is pink, warm \\T\\ dry. mb9 mb9 10/21 07:52 0902 22:34 Patient left the ED. pf1 pf1 10/21 07:53 07:52 Provided Education on: medication education and walking boot instructions. pf1 pf1
--- NOTE | 2022-10-20 21:27 | EDPHYS ---
Physician Documentation [facility] Name: Fatimah Morales Age: 52 yrs Sex: Female : 1970 Arrival Date: 10/20/2022 Time: 19:45 Bed 11 Private MD: Roshan Lang HPI: 10/20 20:09 This 52 yrs old Female presents to ER via Ambulatory with complaints of Ankle Injury - snw LEFT. 20:09 The patient presents with an injury. The complaints affect the left ankle. Onset: The snw symptoms/episode began/occurred last night. Context: The problem was sustained outdoors, The mechanism of injury involved inversion of the affected ankle. The patient can fully bear weight on the affected extremity. the patient is able to ambulate, without difficulty. Associated signs and symptoms: The patient has no apparent associated signs or symptoms. Severity of symptoms: At their worst the symptoms were mild. The patient has experienced similar episodes in the past. It is unknown whether or not the patient has recently seen a physician. Historical: - Allergies: 19:55 No Known Allergies; mb9 - Home Meds: 19:55 hydrocodone-acetaminophen 7.5-325 mg/15 mL Oral soln [Active]; gabapentin 300 mg Oral mb9 cap 1 cap nightly [Active]; - PMHx: 19:55 Hypertensive disorder; mb9 - PSHx: 19:55 reconstruction-left foot; Total abdominal hysterectomy; mb9 - Immunization history:: Adult Immunizations up to date. - Social history:: Smoking status: Patient denies any tobacco usage or history of. ROS: 20:03 Constitutional: Negative for fever, chills, and weight loss, Eyes: Negative for injury, snw pain, redness, and discharge, ENT: Negative for injury, pain, and discharge, Neck: Negative for injury, pain, and swelling, Cardiovascular: Negative for chest pain, palpitations, and edema, Respiratory: Negative for shortness of breath, cough, wheezing, and pleuritic chest pain, Abdomen/GI: Negative for abdominal pain, nausea, vomiting, diarrhea, and constipation, Back: Negative for injury and pain, : Negative for injury, bleeding, discharge, and swelling, Skin: Negative for injury, rash, and discoloration, Neuro: Negative for headache, weakness, numbness, tingling, and seizure, Psych: Negative for depression, anxiety, suicide ideation, homicidal ideation, and hallucinations. 20:03 MS/extremity: Positive for injury or acute deformity, pain, swelling, of the left lateral malleolus and lateral side of left heel and left foot. Exam: 20:02 Constitutional: This is a well developed, well nourished patient who is awake, alert, snw and in no acute distress. Head/Face: Normocephalic, atraumatic. Eyes: Pupils equal round and reactive to light, extra-ocular motions intact. Lids and lashes normal. Conjunctiva and sclera are non-icteric and not injected. Cornea within normal limits. Periorbital areas with no swelling, redness, or edema. ENT: Nares patent. No nasal discharge, no septal abnormalities noted. Tympanic membranes are normal and external auditory canals are clear. Oropharynx with no redness, swelling, or masses, exudates, or evidence of obstruction, uvula midline. Mucous membranes moist. Neck: Trachea midline, no thyromegaly or masses palpated, and no cervical lymphadenopathy. Supple, full range of motion without nuchal rigidity, or vertebral point tenderness. No Meningismus. Chest/axilla: Normal chest wall appearance and motion. Nontender with no deformity. No lesions are appreciated. Cardiovascular: Regular rate and rhythm with a normal S1 and S2. No gallops, murmurs, or rubs. Normal PMI, no JVD. No pulse deficits. Respiratory: Lungs have equal breath sounds bilaterally, clear to auscultation and percussion. No rales, rhonchi or wheezes noted. No increased work of breathing, no retractions or nasal flaring. Abdomen/GI: Soft, non-tender, with normal bowel sounds. No distension or tympany. No guarding or rebound. No evidence of tenderness throughout. Back: No spinal tenderness. No costovertebral tenderness. Full range of motion. Skin: Warm, dry with normal turgor. Normal color with no rashes, no lesions, and no evidence of cellulitis. Neuro: Awake and alert, GCS 15, oriented to person, place, time, and situation. Cranial nerves II-XII grossly intact. Motor strength 5/5 in all extremities. Sensory grossly intact. Cerebellar exam normal. Normal gait. Psych: Awake, alert, with orientation to person, place and time. Behavior, mood, and affect are within normal limits. 20:02 Musculoskeletal/extremity: Extremities: grossly normal except: noted in the lateral side of left heel and left lateral malleolus: swelling, tenderness, ROM: intact in all extremities, Circulation is intact in all extremities. Sensation intact. Vital Signs: 19:54 BP 164 / 97; Pulse 86; Resp 18; Temp 97.4; Pulse Ox 100% ; Weight 102.51 kg; Height 5 mb9 ft. 5 in. ; Pain 9/10; 22:00 BP 150 / 78; Pulse 82; Resp 16; Pulse Ox 100% ; Pain 4/10; pf1 19:54 Body Mass Index 37.61 (102.51 kg, 165.1 cm) mb9 19:54 Pain Scale: Adult mb9 22:00 Pain Scale: Adult pf1 MDM: 19:56 Patient medically screened. snw 20:11 Differential diagnosis: fracture, sprain, arthritis. Data reviewed: vital signs, nurses snw notes, radiologic studies, plain films. Counseling: I had a detailed discussion with the patient and/or guardian regarding the historical points, exam findings, and any diagnostic results supporting the discharge/admit diagnosis, the presence of at least one elevated blood pressure reading (>120/80) during this emergency department visit, radiology results, the need for outpatient follow up, for definitive care, to return to the emergency department if symptoms worsen or persist or if there are any questions or concerns that arise at home. Special discussion: Based on the history and exam findings, there is no indication for further emergent testing or inpatient evaluation. I discussed with the patient/guardian the need to see the orthopedic surgeon for further evaluation of the symptoms. 10/20 19:59 Order name: Foot Left 3 View XRAY; Complete Time: 21:44 snw 10/20 19:59 Order name: Ankle Left 3 View XRAY; Complete Time: 21:26 snw 10/20 20:54 Order name: Walking boot; Complete Time: 22:32 snw 10/20 20:54 Order name: Ice pack; Complete Time: 21:04 snw Administered Medications: 21:04 Drug: Ibuprofen PO 600 mg Route: PO; mb9 22:00 Follow up: Response: No adverse reaction; Marked relief of symptoms; Pain is decreased pf1 Disposition Summary: 10/20/22 21:26 Discharge Ordered Location: Home snw Condition: Stable snw Diagnosis - Sprain of ankle snw - Age-related osteoporosis without current pathological fracture snw - Sprain of foot snw Followup: snw - With: Emergency Department - When: As needed - Reason: Worsening of condition Followup: snw - With: Private Physician - When: 2 - 3 days - Reason: Recheck today's complaints, Continuance of care, Re-evaluation by your physician Discharge Instructions: - Discharge Summary Sheet snw - Ankle Sprain snw - Foot Sprain snw - RICE Therapy for Routine Care of Injuries snw - Walking Boot, Adult snw Forms: - Medication Reconciliation Form snw - Thank You Letter snw - Antibiotic Education snw - Prescription Opioid Use snw - Patient Portal Instructions snw - Leadership Thank You Letter snw Prescriptions: - Mobic 7.5 mg Oral Tablet - take 1 tablet by ORAL route once daily take with food; 20 tablet; Refills: 0, snw Product Selection Permitted Signatures: Dispatcher [employer] Josefina Gannon, GISELA-C DIALYSIS TECH-Csnw Alisha Perla, RN RN mb9 Angelina Fagan RN pf1
--- NOTE | 2022-10-20 21:31 | RAD REPORT ---
EXAM DESCRIPTION: RAD - Foot Left 3 View - 10/20/2022 8:59 pm CLINICAL HISTORY: Pain;Swelling COMPARISON: Foot Left 3 View dated 07/07/2021; Foot Left 3 View dated 04/11/2021 TECHNIQUE: Left foot, 3 views. FINDINGS: No fracture, dislocation or periosteal reaction. Diffuse osteopenia somewhat limits evalua tion. Hindfoot cannulated fusion screws in unchanged alignment. No air or foreign body in the soft tissues. Soft tissue swelling about the ankle. IMPRESSION: Soft tissue swelling as above, without acute osseous abnormality.
[2022-10-20 22:43] VITALS: BP 164/97; TEMP 97.4; O2SAT 100
== END 2022-10-20 22:34 | disposition home or self-care (01) ==
LOC: ER 19:45
DX: S93.402A Sprain of unspecified ligament of left ankle, initial encounter (principal); S93.602A Unspecified sprain of left foot, initial encounter; M81.0 Age-related osteoporosis without current pathological fracture
CPT/HCPCS: 99283